=== PATIENT | male | born 1945 | race Caucasian/White ===

== ENCOUNTER 2021-04-04 14:12 | Outpatient (REF) | payer OTHER, SELFPAY ==
[2021-04-04 13:26] LABS: Abs Immature Grans 0.03 10^3/uL (0.0-0.06); Absolute Basophil Count 0.05 10^3/uL (0.0-0.2); Absolute Lymphocyte Count 2.78 10^3/uL (1.2-3.4); Absolute Monocyte Count 0.85 10^3/uL (0.1-0.8); Absolute Neutrophil Count 5.32 10^3/uL (1.2-6.7); Basophils % 0.5; Eosinophils % 3.2; HCT 40.7 % (40.0-50.0); Immature Grans % 0.3; Lymphocytes % 29.8; MCH 29.5 pg (27.0-33.0); MCHC 31.9 % (32.0-36.0); MCV 92.3 fL (80-95); Monocytes % 9.1; Neutrophils % 57.1; Nucleated RBC 0 %; Platelet Count 221 10^3/uL (130-400); RBC 4.41 10^6/uL (4.36-5.78); RDW 13.2 % (11.8-14.1); RDW-SD 45.1 fL; WBC 9.33 10^3/uL (4.4-10.8)
[2021-04-04 14:04] LABS: Anion Gap 6.6 mmol/L (3-11); BUN 23 mg/dL (7-18); CO2 26.4 mmol/L (21.0-32.0); Calcium 9.2 mg/dL (8.5-10.1); Chloride 109 mmol/L (98-107); Glucose 122 mg/dL (74-106); Potassium 4.7 mmol/L (3.5-5.1); Sodium 142 mmol/L (136-145)
[2021-04-04 14:11] LABS: Hemoglobin A1C 7.3 % (<5.7)
== END 2021-04-04 14:13 | disposition home or self-care (01) ==
LOC: LBN 14:12
PROVIDERS: PCP Family Medicine; Visit Provider Family Medicine
DX: I63.9 Cerebral infarction, unspecified (principal); I25.10 Atherosclerotic heart disease of native coronary artery without angina pectoris
CPT/HCPCS: 80048; 83036; 85025